=== PATIENT | male | born 1995 | race Caucasian/White ===

== ENCOUNTER 2021-01-15 16:31 | Emergency (ER) | payer OTHER, SELFPAY ==
[2021-01-15 16:42] VITALS: BP 130/51; PULSE 64; RESP 16; TEMP 36; O2SAT 98
--- NOTE | 2021-01-15 16:50 | ED.URI ---
HPI - URI/Sore Throat General Chief Complaint: Upper Respiratory Infection Stated Complaint: sore throat Time Seen by Provider: 01/15/21 16:50 Source: patient Mode of arrival: ambulatory Limitations: no limitations History of Present Illness HPI Narrative: Felipe Braswell is a 25 yo male with no PMH who [facility] complaining of sore throat and runny nose that started yesterday. 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 EYES: Denies visual changes, redness, discharge. ENT: Denies rhinorrhea, has congestion, has sore throat, otalgia. CARDIOVASCULAR: Denies chest pain, palpitations, edema. RESPIRATORY: Denies dyspnea, wheezing, light cough GASTROINTESTINAL: Denies abdominal pain, nausea, vomiting, diarrhea. GENITOURINARY: Denies dysuria, hematuria, abnormal discharge SKIN: Denies rash or itching. NEUROLOGIC: Denies numbness, or focal weakness. PSYCHIATRIC: Denies anxiety or depression. PMFSH Past Medical History Medical History No acute medical problems Family History Family History (Updated 01/15/21 @ 17:13 by Gabbie Lopez CNP) Other Diabetes mellitus Heart disease High cholesterol Hypertension Social History Social History (Updated 01/15/21 @ 17:16 by Gabbie Lopez CNP) Smoking packs per day: 0.5 Smoking cigarettes per day: 10.0 Smoking status: Current every day smoker Tobacco type: cigarettes Alcohol intake: current Comments At time of signature, I agree with nursing past medical, surgical, social and family history. There is no relevant family history pertinent to the presenting complaint. Exam Narrative: GENERAL: This is a well-nourished, well-developed patient, in mild distress. HEAD: normocephalic, atraumatic. EYES: Sclera clear/white. Vision is grossly intact. EARS: External ears normal, auditory canals erythema and without drainage, TMs normal without perforation. Hearing grossly intact. NOSE: External nose normal without nasal discharge, nares with redness, rhinorrhea. THROAT: Mucous membranes moist, posterior pharynx erythema NECK: Neck supple, tender submandibular lymph nodes CARDIOVASCULAR: Regular rate and rhythm without murmurs, gallops, or rubs. RESPIRATORY: Clear to auscultation. Breath sounds equal bilaterally. No wheezes, rales, or rhonchi. GASTROINTESTINAL: Abdomen soft, SKIN: warm, intact with no suspicious lesions or rash, good texture and turgor. NEURO: awake, alert, and oriented to person, place and time. There were no obvious focal neurologic abnormalities. Steady gait EXTREMITIES: Normal range of motion. BACK: Nontender without deformity Course Course Emergency Course: Patient here because of sore throat and runny nose for the past 24 hours Strep test negative right Flu test -negative Started on prednisone, Tessalon Perles, Mucinex Vital Signs Vital signs: Vital Signs Temperature 96.8 F L 01/15/21 16:42 Pulse Rate 64 01/15/21 16:42 Respiratory Rate 16 01/15/21 16:42 Blood Pressure 130/51 L 01/15/21 16:42 Pulse Oximetry 98 01/15/21 16:42 Temperature 96.8 F L 01/15/21 16:42 Pulse Rate 64 01/15/21 16:42 Respiratory Rate 16 01/15/21 16:42 Blood Pressure 130/51 L 01/15/21 16:42 Pulse Oximetry 98 01/15/21 16:42 MDM - URI/Sore Throat Differential Diagnosis Differential diagnosis: Likely upper respiratory infection, sinusitis, viral infection, pharyngitis and other Lab Data Labs: Strep Screen
== END 2021-01-15 17:55 | disposition home or self-care (01) ==
PROVIDERS: Emergency Provider Nurse Practitioner
DX: L04.9 Acute lymphadenitis, unspecified (principal); J02.9 Acute pharyngitis, unspecified; F17.210 Nicotine dependence, cigarettes, uncomplicated
CPT/HCPCS: 87081; 87880; 99213; G0463

== ENCOUNTER 2022-09-21 09:02 | Emergency (ER) | payer OTHER, SELFPAY ==
--- NOTE | 2022-09-21 09:18 | ED.SKABFB ---
HPI - Skin/Abscess/Foreign Bdy General Chief complaint: Skin/Abscess/Foreign Body Stated complaint: rash on body Time Seen by Provider: 09/21/22 09:07 Source: patient Mode of arrival: ambulatory Limitations: no limitations History of Present Illness HPI narrative: Patient is a 27-year-old male that presents with rash to bilateral arms. Patient states he knows it is either poison mary or poison oak due to pulling fine from fence on Sunday. Patient has been using calamine lotion with moderate relief. Patient states it is still spreading. Denies any shortness of breath or swelling. Patient does have a history of asthma. Related Data Home Medications Medication Instructions Recorded Confirmed albuterol 2 puff inhalation DIRECTED 09/21/22 09/21/22 Allergies Allergy/AdvReac Type Severity Reaction Status Date / Time No Known Allergies Allergy Verified 09/21/22 09:06 Review of Systems Review of Systems: All systems reviewed & are unremarkable except as noted in HPI and below Constitutional: Constitutional: Denies body ache(s), Denies chills, Denies fatigue, Denies fever(s), Denies headache(s), Denies malaise and Denies weakness Eyes: Eyes: Denies blurry vision, Denies irritation and Denies loss of vision ENT: Denies otalgia, Denies headache(s), Denies nasal discharge, Denies sinus pain and Denies sore throat Cardiovascular: Cardiovascular: Denies chest pain, Denies irregular heart rhythm and Denies dyspnea Respiratory: Respiratory: Denies dyspnea Gastrointestinal: Gastrointestinal: Denies abdominal pain, Denies melena, Denies hematochezia, Denies diarrhea, Denies nausea and Denies vomiting Musculoskeletal: Musculoskeletal: Denies back pain, Denies myalgias and Denies arthralgias Integumentary/Breasts: Skin/Breast: Reports pruritus and Reports rash Neurologic: Denies headache(s), Denies loss of vision and Denies weakness Psychiatric: Psychiatric: Reports no additional psychiatric complaints Endocrine: Endocrine: Denies fatigue PMFSH Past Medical History Medical History No acute medical problems Family History Family History Other Diabetes mellitus Heart disease High cholesterol Hypertension Social History Social History Smoking packs per day: 0.5 Smoking cigarettes per day: 10.0 Smoking status: Current every day smoker Tobacco type: cigarettes Alcohol intake: current Comments At time of signature, agree with nursing past medical, surgical, social and family history. There is no relevant family history pertinent to the presenting complaint. Exam Const: General: cooperative, healthy appearing, comfortable, no acute distress and well nourished Nutritional Appearance: well nourished Orientation/consciousness: patient oriented x3 Limitations: no limitations HENMT: Head: normal to inspection, normocephalic and atraumatic Ears: hearing grossly normal bilaterally and external ears normal Face/Nose/Sinus: Normal external nose present, normal facial exam and face symmetric Face and sinus: normal facial exam and face symmetric Mouth: Yes lip normal Eyes: General: appearance normal, both eyes and all related structures Alignment and Position: alignment normal and position normal Periorbital: periorbital findings normal Eyelids: eyelids normal Pupils: Equal, round and reactive pupils present EOM: EOMs intact bilaterally Neck: Neck: normal visual inspection, full ROM and supple Chest: Chest palpation & inspection: normal inspection of the chest Resp: Effort & Inspection: normal respiratory effort and able to speak in complete sentences Auscultation: clear to auscultation bilaterally Cardio: Rate: regular rate Rhythm: regular rhythm Heart sounds: S1 normal heart sound present and S2 normal heart sound present GI: I
[2022-09-21 09:21] VITALS: BP 131/57; PULSE 56; RESP 16; TEMP 36.3; O2SAT 99
== END 2022-09-21 09:44 | disposition home or self-care (01) ==
PROVIDERS: Emergency Provider Nurse Practitioner Family; PCP Family Medicine
DX: L23.7 Allergic contact dermatitis due to plants, except food (principal); F17.210 Nicotine dependence, cigarettes, uncomplicated; J45.909 Unspecified asthma, uncomplicated; Z86.14 Personal history of Methicillin resistant Staphylococcus aureus infection
CPT/HCPCS: 99213; G0463

== ENCOUNTER 2023-11-27 14:33 | Emergency (ER) | payer SELFPAY ==
[2023-11-27 14:41] VITALS: BP 135/72; PULSE 71; RESP 16; TEMP 36.7; O2SAT 98
--- NOTE | 2023-11-27 15:29 | ED.URI ---
HPI - URI/Sore Throat General Chief Complaint: Upper Respiratory Infection Stated Complaint: Cough Time Seen by Provider: 11/27/23 15:29 Source: patient, RN notes reviewed and old records reviewed Mode of arrival: ambulatory Limitations: no limitations History of Present Illness HPI Narrative: Patient states that yesterday and the day before he was not feeling well, said that he was sick with runny nose and a cough. He had to call off of work as results. He feels much better today, but his employer told him he must have a note in order to come back to work. Patient with no concerns or complaints at this time Related Data Home Medications Medication Instructions Recorded Confirmed albuterol 2 puff inhalation DIRECTED 09/21/22 11/27/23 Allergies Allergy/AdvReac Type Severity Reaction Status Date / Time No Known Allergies Allergy Verified 11/27/23 14:39 Review of Systems Review of Systems: All systems reviewed & are unremarkable except as noted in HPI and below Constitutional: Constitutional: Reports no additional constitutional complaints ENT: Reports system reviewed and no additional complaints, except as documented Cardiovascular: Cardiovascular: Reports no additional cardiovascular complaints Respiratory: Respiratory: Reports no additional respiratory complaints Gastrointestinal: Gastrointestinal: Reports no additional gastrointestinal complaints [facility] Past Medical History Medical History No acute medical problems Family History Family History Other Diabetes mellitus Heart disease High cholesterol Hypertension Social History Social History Smoking packs per day: 0.5 Smoking cigarettes per day: 10.0 Smoking status: Current every day smoker Tobacco type: cigarettes Alcohol intake: current Comments At the time of my signature, I reviewed and agree with the nursing past medical, surgical, social, and family history. There is no relevant family history pertinent to the patient complaint. Exam Const: General: cooperative, no acute distress, alert and awake Orientation/consciousness: oriented to person, oriented to place and oriented to time HENMT: Head: normal to inspection Resp: Effort & Inspection: normal respiratory effort and able to speak in complete sentences Auscultation: clear to auscultation bilaterally, no crackles, no rales, no rhonchi and no wheezes Cardio: Palpation: normal PMI Rate: regular rate Rhythm: regular rhythm Heart sounds: S1 normal heart sound present and S2 normal heart sound present Neuro: General: oriented to person, oriented to place and oriented to time Cranial nerves: Yes CN's II-XII intact bilaterally Psych: Appearance: grossly normal Thought process: Normal thought process present Insight: Good insight present (Psych) Judgement: Good judgement present (Psych) Course Course Level of Care: Express Care Visit Vital Signs Vital signs: Vital Signs Temperature 98.0 F 11/27/23 14:41 Pulse Rate 71 11/27/23 14:41 Respiratory Rate 16 11/27/23 14:41 Blood Pressure 135/72 11/27/23 14:41 Pulse Oximetry 98 11/27/23 14:41 Oxygen Delivery Room Air 11/27/23 14:41 Temperature 98.0 F 11/27/23 14:41 Pulse Rate 71 11/27/23 14:41 Respiratory Rate 16 11/27/23 14:41 Blood Pressure 135/72 11/27/23 14:41 Pulse Oximetry 98 11/27/23 14:41 Oxygen Delivery Room Air 11/27/23 14:41 Reviewed MDM - URI/Sore Throat MDM Narrative Medical decision making narrative: Patient with no complaints today, requesting work note. Work note provided. Follow with primary care provider, emergency department for new or worse symptoms. Discharge instructions reviewed with patient, as well as provided in writing per nursing staff. The instructions also include
== END 2023-11-27 15:40 | disposition home or self-care (01) ==
PROVIDERS: Emergency Provider Nurse Practitioner Family
DX: J06.9 Acute upper respiratory infection, unspecified (principal); F17.210 Nicotine dependence, cigarettes, uncomplicated
CPT/HCPCS: 99211; 99213; G0463

== ENCOUNTER 2024-07-07 12:02 | Emergency (ER) | payer BC, SELFPAY ==
--- NOTE | 2024-07-07 12:03 | ED_ITS ---
HPI - Skin/Abscess/Foreign Bdy General Chief complaint: Skin/Abscess/Foreign Body Stated complaint: blisters on back Time Seen by Provider: 07/07/24 12:11 Source: patient, RN notes reviewed and old records reviewed Mode of arrival: ambulatory Limitations: no limitations History of Present Illness HPI narrative: 28-year-old male presents to the [facility] with complaints of a blistery sunburn to his back. States that he was fishing on Sunday, took his shirt off for 3 hours. Sunday night noticed that his back was red, sunburn. Reports today he noticed blister started on on his shoulders. Onset (ago): day(s) (2) Context: new medication (Augmentin, steroid) Treatments prior to arrival: OTC topical medication (Sun burn cream) Related Data Home Medications ?Medication ?Instructions ?Recorded ?Confirmed ?Last Taken ?Type albuterol sulfate 90 mcg/actuation inhalation 07/07/24 Unknown History aerosol inhaler Allergies Allergy/AdvReac Type Severity Reaction Status Date / Time No Known Allergies Allergy Verified 07/07/24 12:04 Review of Systems Review of Systems: All systems reviewed & are unremarkable except as noted in HPI and below Constitutional: Constitutional: Reports no additional constitutional complaints Cardiovascular: Cardiovascular: Denies dyspnea Integumentary/Breasts: Skin/Breast: Reports as per HPI PMFSH Past Medical History Medical History No acute medical problems Family History Family History Other Diabetes mellitus Heart disease High cholesterol Hypertension Social History Social History Smoking packs per day: 0.5 Smoking cigarettes per day: 10.0 Smoking status: Current every day smoker Tobacco type: cigarettes Alcohol intake: current Comments At the time of my signature, I reviewed and agree with the nursing past medical, surgical, social, and family history. There is no relevant family history pertinent to the patient complaint. Exam Const: General: cooperative, healthy appearing, comfortable, no acute distress, well developed, alert and well nourished Nutritional Appearance: well nourished Orientation/consciousness: patient oriented x3 Limitations: no limitations HENMT: Head: normal to inspection Mouth: Yes Normal oral and palatal mucosa present, Yes lip normal, Yes tongue normal and Yes moist mucous membranes Eyes: General: appearance normal, both eyes and all related structures Alignment and Position: alignment normal Neck: Neck: normal visual inspection, full ROM, no lymphadenopathy and no meningeal signs Chest: Chest palpation & inspection: normal inspection of the chest Resp: Effort & Inspection: normal respiratory effort and able to speak in complete sentences Cardio: Rate: regular rate Skin: General skin exam: no rashes or lesions noted and erythema (Back, small bumps, peeling skin to the shoulders) Neuro: General: patient oriented x3, gait normal, moves all extremities and no meningeal signs Cognition (Neuro): normal cognition Speech: normal speech Gait exam (Neuro): Normal gait present Extrem: General: normal to inspection, full ROM, capillary refill normal and normal gait Psych: Appearance: grossly normal and well kempt Mental Status: mental status grossly normal Speech and movement: Normal speech and movement present and Clear speech present Affect: normal affect Attitude: cooperative Course Course Level of Care: Express Care Visit Vital Signs Vital signs: Vital Signs Temperature 97.9 F 07/07/24 12:11 Pulse Rate 67 07/07/24 12:11 Respiratory Rate 20 07/07/24 12:11 Blood Pressure 121/81 07/07/24 12:11 Pulse Oximetry 99 07/07/24 12:11 Oxygen Delivery Room Air 07/07/24 12:11 Temperature 97.9 F 07/07/24 12:11 Pulse Rate 67 07/07/24 12:11 Respiratory Rate 20 07/07/24 12:11 Blood Pressure 121/81 07/07/24 12:11 Pulse Oximetry 99 07/07/24 12:11 Oxygen Delivery Room Air 07/07/24 12:11 Reviewed MDM - Skin/Abscess/Foreign Bdy MDM Narrative Medical decision making narrative: Patient sitting in exam room. Patient is nontoxic, vitals are stable. Patient presents with sunburn. Discussed [id number] treatments. Patient appropriate for outpatient treatment with close follow-up Discharge instructions reviewed with patient, as well as provided in writing per nursing staff. The instructions also include specific and strict return/GO TO THE ER as well as f/u information. All questions have been answered, and the patient deny any further questions with discharge and discharge plan. Some parts of this dictation were generated by voice recognition software and may contain typographical and/or grammatical inaccuracies. Differential Diagnosis Differential diagnosis: Likely urticaria, allergic reaction to drug, cellulitis, contact dermatitis and other (Sunburn) Critical Care Time Critical Care Time Critical Care Time: No Discharge Plan Discharge Clinical Impression: Sunburn Patient Disposition: Home Condition: Stable Instructions: Antibiotic Form, Sunburn (ED) Additional Instructions: Using topical burn relief products such as aloe gel with lidocaine can help. Take ibuprofen 600 mg alternating with 500 mg of Tylenol can help with pain For hydration of your skin you can also use Eucerin or Aquaphor. Applying cool compresses can help decrease inflammation and help with pain It typically takes 1-2 weeks for healing of a sunburn Patient Language: Bangladeshi Prescriptions: No Action albuterol sulfate 90 mcg/actuation HFA aerosol inhaler INHALATION Follow-up/Referrals: UNKNOWN,DOCTOR [Non-Staff] - Stand Alone Forms: Work/School Release IP Time of Disposition: 12:22
[2024-07-07 12:11] VITALS: BP 121/81; PULSE 67; RESP 20; TEMP 36.6; O2SAT 99
== END 2024-07-07 12:25 | disposition home or self-care (01) ==
PROVIDERS: Emergency Provider Nurse Practitioner
DX: L55.9 Sunburn, unspecified (principal); F17.210 Nicotine dependence, cigarettes, uncomplicated
CPT/HCPCS: 99211; G0463